=== PATIENT | female | born 1930 | race Caucasian/White ===

== ENCOUNTER 2016-05-25 19:58 | Observation (INO) ==
[2016-05-25] MEDS ORDERED: Naloxone 0.4 MG/ML INJ IVP PRN (23:22)
[2016-05-25] MEDS ORDERED: Acetaminophen 325 MG TABLET PO PRN (23:24)
[2016-05-25] MEDS ORDERED: Ondansetron 4 MG/2 ML VIAL IVP PRN (23:24)
[2016-05-25] MEDS ORDERED: 0.9 % Sodium Chloride 1,000 ML IVC SCH (23:30)
--- NOTE | 2016-05-25 23:42 | Internal Med History&Physical ---
Date of Encounter: 05/25/16 Time of Encounter: 22:30 Assessment and Plan (1) Black stools Current visit: Yes Status: Acute 1 she had 4 episodes of black stools. She denies any abdominal pain nausea vomiting not emesis or hematochezia. Patient is on iron as well as takes aspirin and meloxicam. Will obtain stool for occult blood 2 we will make nothing by mouth after midnight 3 Protonix 40 mg twice a day IV 4 we will hold aspirin and meloxicam for now 5 consult GI as needed (2) Hypertension Current visit: Yes Status: Acute 1 controlled-once med rec confirmed we will continue at home medications Qualifiers: Hypertension type: essential hypertension Qualified Code(s): I10 - Essential (primary) hypertension (3) Hypothyroid Current visit: Yes Status: Acute 1 we will continue with Synthroid Qualifiers: Hypothyroidism type: unspecified Qualified Code(s): E03.9 - Hypothyroidism , unspecified (4) DVT prophylaxis Current visit: Yes Status: Acute 1 TRACY son Internal Medicine - H&P: HPI Chief complaint: black stools Admitted From: Hospital to Hospital Transfer Plans for Post Hospital Care: Home History of present illness: Ms. Corbett is a 86 year old female with history of hypertension thyroid disease breast cancer arthritis. According to the patient overnight last night the patient experienced 4 stools that were black in color. Most recent stool was 8 AM this morning. She denied any abdominal pain cramping hematochezia or hematemesis. She is on aspirin, meloxicam as well as iron. She denies any previous history of GI bleeding she has not had any recent colonoscopy/ endoscopy. She denies any previous black stools. She denies any Pepto-Bismol use She went to urgent care this a.m. which advised her to go to the hospital. She went to [facility] [place] [facility]. According to ER records Lab work revealed hemoglobin 11.9 BUN 30 creatinine 1.35. Stool was not obtained due to lack of stool in rectal vault. The patient was hemodynamically stable no tachycardia no hypotension she was given bolus of Protonix started on Protonix drip. There was no GI available at that facility patient and has been requested to be transferred to [place] for further workup and evaluation. Upon assessment patient does not appear to be in any distress she denies any pain or discomfort no abdominal pain and no active bleeding noted. Present time patient is hemodynamically stable. I reviewed the case with who agrees with plan Past Med Surg Social Fam HX - Past Medical History Medical history: cancer, hypertension, thyroid disease, other - Past Surgical History Surgical History: breast surgery, cholecystectomy - Social History Smoking Status: Never smoker Alcohol use: none Drug use: none - Additional Family History Additional family history: Reviewed and noncontributory Internal Medicine - H&P: Meds Unable To Obtain [Unable to Obtain] 05/25/16 [History] Allergies Penicillins Allergy (Verified 05/25/16 21:25) Hives All Systems PM: A 10-system review of systems was performed and is negative for pertinent findings except as documented above in the HPI. - Constitutional Constitutional: no chills, no fever(s), no night sweats - EENT Eyes: no change in vision, no discharge, no pain, no photophobia - Cardiovascular Cardiovascular ROS IM: no chest pain, no diaphoresis, no dyspnea, no lightheadedness, no palpitations, no syncope - Respiratory Respiratory: no cough, no dyspnea, no wheezing, no excessive phlegm production - Gastrointestinal Gastrointestinal: no abdominal pain, no diarrhea, no hematemesis, no hematochezia, no melena, no nausea, no vomiting - Genitourinary Genitourinary: no change in urinary stream, no dysuria, no flank pain, no hematuria - Musculoskeletal Musculoskeletal ROS IM: no numbness, no tingling - Neurological Neurological ROS: no confusion, no convulsions, no focal weakness, no numbness, no tingling, no tremor(s) - Hematologic/Lymphatic Hematologic/Lymphatic: no easy bruising - Constitutional Vitals: Temp Pulse Resp BP Pulse Ox 97.8 F 60 20 176/83 97 05/25/16 21:43 05/25/16 21:43 05/25/16 21:43 05/25/16 21:43 05/25/16 21:43 General appearance: Present: A&O X 3, answers questions appropriately - Head Head exam: Present: atraumatic, normocephalic - Eye Eye exam: Present: PERRL, conjuntiva pink, sclera anicteric Pupils: Present: PERRL - Neck Neck exam general surgery: Present: supple, trachea midline. Absent: lymphadenopathy - Respiratory Respiratory exam: Present: CTAB. Absent: accessory muscle use, rales, rhonchi, wheezes - Cardiovascular Cardiovascular exam: Present: RRR, +S1, +S2. Absent: diastolic murmur, gallop, rubs, systolic murmur - GI/Abdominal GI/Abdominal exam: Present: normal bowel sounds, soft, no peritoneal signs. Absent: distended, tenderness - Extremities Exam Extremities exam: Present: warm, radial pulses palpable and symetrical. Absent : calf tenderness, cyanotic, pedal edema - Neurological Exam Neurological exam: Present: CN II-XII intact, oriented X3, no focal deficits. Absent: pronater drift, facial droop, speech deficit - Skin Skin exam: Present: dry, intact Internal Med - H&P Results - Labs Labs: Labs from [facility] [place] ER time 17:16 05/25/2016 CBC hemoglobin 11.9 hematocrit 36.2 leukocytes 8.1 platelets 293 Chemistry 137 potassium 4.5 chloride 102 carbon S a 25 BUN 30 glucose 102 creatinine 1.35
--- NOTE | 2016-05-26 01:38 | Event Note ---
Date of Encounter: 05/26/16 Time of Encounter: 01:36 Patient seen and examined with nurse practitioner. Patient had 4 bouts of black stools yesterday. She is hemodynamically stable. She denies any nausea. No vomiting or fresh blood. No red blood with the stools. Will check stools for occult blood. Keep on IV Protonix twice daily. If occult blood test was positive will ask gastroenterology to see the patient. She is an aspirin but no other nonsteroidal anti-inflammatory drugs. She has elevated creatinine not sure if acute or chronic. Will hydrate and follow kidney functions in the morning
[2016-05-26] MEDS ORDERED: Pantoprazole 40 MG VIAL IVP SCH (06:00)
[2016-05-26 06:46] LABS: Basophils % 0.3 %; Eosinophils # 0.3 K/mcL (0.0-0.6); Eosinophils % 3.8 %; Hematocrit 34.2 % (35.3-44.9); Hemoglobin 11.4 g/dL (11.5-15.4); Immature Granulocytes % 0.3 % (0-4); Lymphocytes # 1.6 K/mcL (0.6-4.6); Lymphocytes % 23.5 %; Mean Corpuscular HGB Conc 33.3 g/dL (31.6-35.5); Mean Corpuscular Hemoglobin 31.5 pg (28.0-33.3); Mean Corpuscular Volume 94.5 fL (83.0-100.0); Mean Platelet Volume 9.6 fL (9.4-12.4); Monocytes # 0.7 K/mcL (0.0-1.3); Monocytes % 10.5 %; Neutrophils # 4.2 K/mcL (1.6-8.9); Platelet Count 216 K/mcL (140-400); Red Blood Count 3.62 M/mcL (3.82-4.97); Red Cell Distribution Width 12.9 % (11.5-14.5); Segmented Neutrophils % 61.6 %
[2016-05-26 06:58] LABS: Calcium 9.8 mg/dL (8.6-10.8); Potassium 4.2 mEq/L (3.5-4.5)
[2016-05-26 10:59] VITALS: BP 185/76
--- NOTE | 2016-05-26 12:05 | Discharge Summary ---
Date of Encounter: 05/26/16 Time of Encounter: 11:58 - Discharge Diagnosis (1) Black stools Priority: Primary Status: Resolved (2) DVT prophylaxis Priority: Secondary Status: Acute (3) Hypertension Priority: Secondary Status: Chronic Qualifiers: Hypertension type: essential hypertension Qualified Code(s): I10 - Essential (primary) hypertension (4) Hypothyroid Priority: Secondary Status: Chronic Qualifiers: Hypothyroidism type: unspecified Qualified Code(s): E03.9 - Hypothyroidism , unspecified - Discharge Medications Home Medications: Unable To Obtain [Unable to Obtain] 05/25/16 [History] Allergies/Adverse Reactions: Allergies Penicillins Allergy (Verified 05/25/16 21:25) Hives Date of admission: 05/25/16 21:02 Primary care physician: Donell Hidalgo, Discharging clinician: Sofía Smith date of discharge: 05/26/16 - Patient Status Disposition: Home, Self-Care Condition: Good Functional capacity at discharge: uses cane/walker Overall status at discharge: patient is back to baseline - Discharge Instructions Follow Up With: Donell Hidalgo, [Primary Care Provider] - Additional Instructions: Please follow up with your primary care physician within five days after your discharge from the hospital. Please get your blood work done prior to your appointment with your primary care physician. Please seek medical help if you notice blood in your stool. Please resume all your home medications as prescribed by your primary care physician. Hospital course: Ms. Corbett is a 86 year old female with PMH of hypertension, thyroid disease, breast ca, arthritis, iron deficiency anemia who was admitted for evaluation of dark bowel movements. Patient was transferred from [facility] to [facility] for further evaluation. Patient has not had any bowel movements since her hospitalizations. Her rectal exam was negative for any acute bleeds. Her H&H has remained stable and she is in no acute distress. She reports of being on iron supplements for her anemia. At this time she denies any nausea, abd pain, or any discomfort. patient will be discharged to home today with follow up with PCP as outpatient. - Time Spent with Patient Total time spent providing and/or coordinating discharge services: Greater than 30 minutes - Constitutional Vitals: Temp Pulse Resp BP Pulse Ox 98.1 F 60 16 185/76 95 05/26/16 10:00 05/26/16 10:00 05/26/16 10:00 05/26/16 10:00 05/26/16 10:00 General appearance: Present: cooperative, A&O X 3, pleasant, no acute distress, obese, answers questions appropriately - Head Head exam: Present: atraumatic, normocephalic - Eye Eye exam: Present: normal appearance, conjuntiva pink, sclera anicteric - Respiratory Respiratory exam: Present: CTAB. Absent: accessory muscle use, rales, rhonchi, wheezes - Cardiovascular Cardiovascular exam: Present: RRR, +S1, +S2. Absent: diastolic murmur, gallop, rubs, systolic murmur - GI/Abdominal GI/Abdominal exam: Present: normal bowel sounds, soft, no peritoneal signs. Absent: distended, tenderness - Extremities Exam Extremities exam: Present: pedal edema, warm, radial pulses palpable and symetrical. Absent: calf tenderness - Neurological Exam Neurological exam: Present: alert, oriented X3 - Psychiatric Psychiatric exam: Present: normal affect, normal mood
[2016-05-26] MEDS ORDERED: hydroCHLOROthiazide 25 MG TABLET PO SCH (13:45)
== END 2016-05-26 16:40 | disposition home or self-care (01) ==
LOC: 3ANU
PROVIDERS: ADMIT Hospitalist; ATTEND Internal Medicine